=== PATIENT | female | born 1975 | race Caucasian/White ===

== ENCOUNTER → 2017-11-21 | Outpatient (CLI) | payer OTHER ==
[~2017-11-21] MED LIST: BUTA1CAP30 PO; CYAN1TAB29 PO; IBUP200T64 PO; LACT1CAP40 PO; MULT-516 PO; THRE500T PO
[2017-11-21 11:31] LABS: BASOPHILS # (AUTO) 0.03 x10^3/uL (0-0.1); BASOPHILS % (AUTO) 0 % (0-1); EOSINOPHILS # (AUTO) 0.09 x10^3/uL (0-0.4); EOSINOPHILS % (AUTO) 1 % (1-7); LYMPHOCYTES # (AUTO) 1.96 x10^3/uL (1-3.4); LYMPHOCYTES % (AUTO) 31 % (22-44); MD NO; MEAN CORPUSCULAR HEMOGLOBIN 34.1 pg (27.0-34.8); MEAN CORPUSCULAR HGB CONC 34.4 g/dL (32.4-35.8); MEAN CORPUSCULAR VOLUME 99.1 fL (80-100); MEAN PLATELET VOLUME 8.1 fL (7.4-10.4); MONOCYTES # (AUTO) 0.43 x10^3/uL (0.2-0.8); MONOCYTES % (AUTO) 7 % (2-9); NEUTROPHILS # (AUTO) 3.86 x10^3/uL (1.8-6.8); NEUTROPHILS % (AUTO) 61 % (42-75); PLATELET COUNT 211 x10^3/uL (130-400); RED BLOOD COUNT 3.94 x10^6/uL (3.82-5.3); RED CELL DISTRIBUTION WIDTH 12.1 % (9.6-15.2)
== END | disposition home or self-care (01) ==
LOC: STAR 10:39
PROVIDERS: ATTEND Obstetrics & Gynecology Female Pelvic Medicine and Reconstructive Surgery
DX: Z30.2 Encounter for sterilization (principal); N39.3 Stress incontinence (female) (male)
CPT/HCPCS: 36415; 84703; 85025

== ENCOUNTER 2017-12-12 05:51 | Day surgery (SDC) | payer OTHER ==
[~2017-12-12] VITALS: Ht 154.9 cm; Wt 51.8 kg
[2017-12-12] MEDS ORDERED: LACTATED RINGERS 1,000 ML IV SCH ×2 (06:18→08:35)
[2017-12-12 06:26] LABS: HCG UR SG 1.015 (1.003-1.030)
[2017-12-12 06:41] VITALS: BP 104/69
[2017-12-12] MEDS ORDERED: BUPIVACAINE/PF 0.25% ONE (06:56)
[2017-12-12] MEDS ORDERED: VANCOMYCIN 500 MG ONE (06:57)
[2017-12-12] MEDS ORDERED: EPINEPHRINE 1 MG/ML, 1ML ONE (06:57)
[2017-12-12] MEDS ORDERED: GENTAMICIN 80 MG/2 ML ONE (06:57)
[2017-12-12] MEDS ORDERED: FLUORESCEIN SODIUM 500 MG/5 ML ONE (06:57)
[2017-12-12] MEDS ORDERED: THROMBIN 5,000 UNIT VIAL TP ONE (06:57)
[2017-12-12] MEDS ORDERED: SILVER NITRATE STICK TP ONE (07:01)
[2017-12-12] MEDS ORDERED: GABAPENTIN 300 MG CAPSULE PO ONE (07:15)
[2017-12-12] MEDS ORDERED: FAMOTIDINE 20 MG TABLET PO ONE (07:15)
[2017-12-12] MEDS ORDERED: METOCLOPRAMIDE 10MG TABLET PO ONE (07:15)
[2017-12-12] MEDS ORDERED: ACETAMINOPHEN 500 MG TABLET PO ONE (07:15)
[2017-12-12] MEDS ORDERED: SCOPOLAMINE PATCH, 1.5MG PATCH.TD72 TD ONE (07:15)
[2017-12-12] MEDS ORDERED: KETOROLAC 30 MG/1 ML ONE (07:26)
[2017-12-12] MEDS ORDERED: PROPOFOL 10 MG/ML, 50ML ONE (07:26)
[2017-12-12] MEDS ORDERED: GLYCOPYRROLATE 0.2MG/1ML, 5ML ONE (07:26)
[2017-12-12] MEDS ORDERED: CEFOTETAN 1 GM ONE (07:26)
[2017-12-12] MEDS ORDERED: NEOSTIGMINE 1 MG/ML, 10ML ONE (07:26)
[2017-12-12] MEDS ORDERED: PROPOFOL 10 MG/ML, 20ML ONE (07:26)
[2017-12-12] MEDS ORDERED: ROCURONIUM 10 MG/ML,10ML ONE (07:26)
[2017-12-12] MEDS ORDERED: DEXAMETHASONE 4 MG/ML, 1ML ONE (07:26)
[2017-12-12] MEDS ORDERED: ONDANSETRON 2MG/ML, 2ML ONE (07:26)
[2017-12-12] MEDS ORDERED: FENTANYL PF 100 MCG/2ML IV PRN (08:00)
[2017-12-12] MEDS ORDERED: MEPERIDINE/PF 25MG/0.5ML IVPush PRN (08:00)
[2017-12-12] MEDS ORDERED: OXYcodone 5 MG/5 ML ORAL.SOL UDC PO PRN (08:00)
[2017-12-12] MEDS ORDERED: PROMETHAZINE 25 MG/ML, 1ML IV PRN (08:00)
[2017-12-12] MEDS ORDERED: OXYcodone 5 MG/5 ML ORAL.SOL UDC ONE (08:46)
[2017-12-12] MEDS ORDERED: ONDANSETRON 2MG/ML, 2ML IVPush PRN (09:00)
[2017-12-12] MEDS ORDERED: IBUPROFEN 600 MG TABLET PO PRN (09:00)
[2017-12-12] MEDS ORDERED: HYDROcodone/APAP 5/325 TABLET PO PRN (09:00)
[2017-12-12] MEDS ORDERED: PROMETHAZINE 12.5 MG SUPP PR ONE (09:00)
== END 2017-12-12 12:35 ==
LOC: OUT 05:51
PROVIDERS: ATTEND Obstetrics & Gynecology Female Pelvic Medicine and Reconstructive Surgery
DX: Z30.2 Encounter for sterilization (principal); N39.3 Stress incontinence (female) (male); N36.41 Hypermobility of urethra; G43.909 Migraine, unspecified, not intractable, without status migrainosus
CPT/HCPCS: 57288; 58670; 81025; C1771; J0171; J1100; J1580; J1885; J2405; J2704; J2710; J3370; J3490; J7120; S0074